=== PATIENT | male | born 1935 | race Caucasian/White ===

== ENCOUNTER 2016-09-18 17:18 | Inpatient (IN) | payer MEDICARE, BC ==
[~2016-09-18] VITALS: Ht 177.8 cm; Wt 98.0 kg
[~2016-09-18 17:18] MED LIST: ASPIRIN 81M81 MG/TA2 PO; BYSTOLIC2.5 MG PO; CEPHALEXIN500 M1 PO; CLOBETASOL0.05% TP; COUMADIN 5MG5 MG/TAB PO; DIOVAN320 MG PO; FISH OIL 1000MG1 CAP PO; HCTZ PO; IMDUR 30MG30 MG/TAB PO; LEVAQUIN 750MG750 M1; LOVENOX120 MG/0.8 SC; LUTEIN PO; LUTEIN6 MG PO; NORCO 325 MG-51 TAB PO; PRAVACHOL10 MG PO; PRINZIDE 25 MG-1 TAB PO; TEMOVATE0.05% TP; TEMOVATE45OI TOP; TIMOLOL OPHTHALMIC OU; TIMOPTIC 0.25%-10 OU; TRAVATAN 2.5 M2.5 M1 OU; XALATAN EYE DROPS OU; [UNRECOGNIZED DRUG - OTHER] TP
[2016-10-08 08:00] VITALS: BP 145/85; PULSE 75; TEMP 98.7
[2016-10-08 08:04] VITALS: BP 145/85; PULSE 74; TEMP 98.7
[2016-10-08] MEDS ORDERED: ZIAC 5/6.25MG T1 TAB PO (08:22)
[2016-10-08] MEDS ORDERED: DIOVAN 160MG160 MG PO (08:23)
[2016-10-08 09:14] LABS: HEMATOCRIT 40.8 % (42.0-52.0); HEMOGLOBIN 14.5 g/dl (13.5-18.0); MEAN CELL VOLUME 88 fl (80.0-100.0); MEAN CORPUSCULAR HEMOGLOBIN 31 pg (27.0-31.0); MEAN CORPUSCULAR HGB CONC 36 g/dl (33.0-37.0); MEAN PLATELET VOLUME 10.6 fl (7.4-10.4); PLATELET COUNT 145 K/mm3 (130-400); RED BLOOD COUNT 4.63 M/mm3 (4.20-5.60); REDCELL DISTRIBUTION WIDTH-CV 13.2 % (11.5-14.5); WHITE BLOOD COUNT 4.8 K/mm3 (4.8-10.8)
[2016-10-08 09:16] LABS: INR 1.1 (0.8-3.0); PROTHROMBIN TIME 12.1 SECONDS (9.7-12.8)
[2016-10-08 09:28] LABS: ADJUSTED CALCIUM 9.2 mg/dL (8.4-10.2); ALBUMIN 3.4 gm/dL (3.5-5.0); BILIRUBIN,TOTAL 0.8 mg/dL (0.0-1.0); CALCIUM 8.7 mg/dL (8.4-10.2); CREATININE, serum 0.74 mg/dL (0.66-1.25); MAGNESIUM 1.9 mg/dL (1.6-2.3); TOTAL PROTEIN 6.1 gm/dL (6.4-8.2)
[2016-10-08 11:04] VITALS: BP 139/79; PULSE 110; TEMP 97.7
[2016-10-08 16:30] VITALS: BP 160/95; PULSE 65; TEMP 98.5
[2016-10-08 19:28] VITALS: BP 120/69; PULSE 54; PULSE 76; TEMP 98.8
[2016-10-08 22:47] VITALS: BP 151/93; PULSE 67; TEMP 98.5
[2016-10-09 03:22] VITALS: BP 135/78; PULSE 65; TEMP 97.8
[2016-10-09 06:54] LABS: CALCIUM 8.7 mg/dL (8.4-10.2); CREATININE, serum 0.7 mg/dL (0.66-1.25); POTASSIUM 4.2 mmol/L (3.4-5.0)
[2016-10-09 08:13] VITALS: BP 113/63; PULSE 119; TEMP 97.4
[2016-10-09 12:42] VITALS: BP 126/77; PULSE 119; TEMP 97.4
[2016-10-09 16:56] VITALS: BP 110/56; PULSE 60; TEMP 97.4
[2016-10-09 20:51] VITALS: BP 141/75; PULSE 60; TEMP 97.8
[2016-10-10 00:17] VITALS: BP 133/69; PULSE 65; TEMP 98.2
[2016-10-10 04:10] VITALS: BP 127/77; PULSE 65; TEMP 97.8
[2016-10-10 07:20] LABS: CALCIUM 8.5 mg/dL (8.4-10.2); CREATININE, serum 0.7 mg/dL (0.66-1.25); POTASSIUM 4.2 mmol/L (3.4-5.0)
[2016-10-10 08:02] VITALS: BP 110/53; PULSE 59; TEMP 97.5
[2016-10-10 11:47] VITALS: BP 93/61; PULSE 62; TEMP 98
[2016-10-10] MEDS ORDERED: BETAPACE 80MG80 MG PO (13:43)
[2016-10-10] MEDS ORDERED: DIOVAN 80MG80 MG PO (13:43)
== END 2016-10-10 14:20 | disposition home or self-care (01) | DRG 309 ==
LOC: MEDICAL 10-08 07:45
PROVIDERS: Internal Medicine Cardiovascular Disease
DX: I47.1 Supraventricular tachycardia (principal); I42.9 Cardiomyopathy, unspecified; I10 Essential (primary) hypertension; E78.5 Hyperlipidemia, unspecified; Z95.810 Presence of automatic (implantable) cardiac defibrillator
CPT/HCPCS: J1650

== ENCOUNTER 2019-01-19 01:44 | Inpatient (IN) | payer MEDICARE, BC ==
[2019-01-19] VITALS (423 sets, daily range): BP systolic 103–172; BP diastolic 59–99; PULSE 57–70; TEMP 97.5–98; O2SAT 75–100
[~2019-01-19] VITALS: Ht 177.8 cm; Wt 86.2 kg
[~2019-01-19 01:44] MED LIST changes: +BETAPACE 80MG80 MG PO; +DIOVAN 160MG160 MG PO; +DIOVAN 80MG80 MG PO; +ZIAC 5/6.25MG T1 TAB PO
--- NOTE | 2019-01-19 01:53 | NUR ---
Received report from [place] nurseKim.
[2019-01-19 03:45] LABS: COLLECTION METHOD CLEAN CATCH
[2019-01-19 04:18] LABS: MUCOUS Present /lpf; PH 6 (5-8); SQUAMOUS EPITHELIAL None Seen /hpf; URINE APPEARANCE Clear; URINE BACTERIA None Seen /hpf; URINE BILIRUBIN Negative (NEGATIVE); URINE BLOOD 3+ (NEGATIVE); URINE COLOR Yellow; URINE GLUCOSE 3+ (NEGATIVE); URINE KETONE Negative (NEGATIVE); URINE LEUKOCYTE ESTERASE Negative (NEGATIVE); URINE NITRATE Negative (NEGATIVE); URINE PROTEIN(semi-quant) Negative (NEGATIVE); URINE UROBILINOGEN Negative (NEGATIVE); URINE WBC 0-2 /hpf
[2019-01-19] MEDS ORDERED: PLAVIX 75MG TAB75 MG PO (05:19)
[2019-01-19] MEDS ORDERED: COZAAR 25MG25 MG/TAB PO (05:20)
--- NOTE | 2019-01-19 05:37 | NUR ---
Patient arrived to ICU room 4 via EMS stretcher at 0230. Patient ambulated with stand-by assist to ICU bed. Patient's street clothes were removed and replaced with a gown. Skin was assessed; patient is admitted with 20 guage IV in right wrist that is saline locked. Feet are cold to palpation; pedal and post tibial pulses are 1+. No other skin issues noted. Patient is alert and oriented x 4 and denies any present pain or discomfort. Patient's initial blood pressure is 172/99, all other vitals are within normal limits. Patient's personal belongings include a watch with a black leather bad, a gold wedding band, a pair of jeans, a white shirt, a blue plaid shirt, white socks, underpants, and black shoes. Dr. Limon was notified of patient's arrival. No orders have been recieved at this time; instructed to notify Ashly if patient reverts to afib RVR. Will continue to monitor.
[2019-01-19 06:05] LABS: BASO # 0.1 (0.0-0.2); EOS # 0.1 (0.0-0.7); EOS % 1.2 % (0-4.0); GRAN # 2.9 (1.4-6.5); GRAN % 57.3 % (42.2-75.2); HEMOGLOBIN 15.4 g/dl (13.5-18.0); LYMPH # 1.2 (1.2-3.4); LYMPH % 23.2 % (20.0-51.0); MEAN CELL VOLUME 90 fl (80.0-100.0); MEAN CORPUSCULAR HEMOGLOBIN 31 pg (27.0-31.0); MEAN CORPUSCULAR HGB CONC 35 g/dl (33.0-37.0); MONO # 0.9 (0.1-0.6); MONO % 16.9 % (1.7-9.3); PLATELET COUNT 139 K/mm3 (130-400); REDCELL DISTRIBUTION WIDTH-CV 13.2 % (11.5-14.5)
[2019-01-19 06:25] LABS: CALCIUM 8.7 mg/dL (8.4-10.2); CREATININE, serum 0.62 (0.66-1.25); POTASSIUM 3.8 mmol/L (3.4-5.0)
--- NOTE | 2019-01-19 07:24 | NUR ---
Report given to JACQUES Ibrahim.
--- NOTE | 2019-01-19 09:30 | NUR ---
at bedside rounding with pt.
--- NOTE | 2019-01-19 10:02 | NUR ---
Initial visit; Patient thanked Library Science Instructor for looking in on him and offering God's blessings.
--- NOTE | 2019-01-19 11:11 | NUR ---
TOOL HARDENER student met with the patient to discuss a discharge plan. The patient lives in [place] with his , Maggie. The patient has a CPAP. The patient received the machine from [facility] but receives supplies from [facility]. The patient reports independence with ADLs. The patient's PCP is Dr. Rodriguez in [place] and patient receives medications from [facility] with no difficulties. The patient does not have advanced directives in the EMR but reports they are completed and designate his son Amee from [place], [place]. The patient plans to return home upon discharge with Maggie providing transportation. There are no additional needs at this time.
--- NOTE | 2019-01-19 14:00 | NUR ---
Dr. Hough at bedside rounding with team.
--- NOTE | 2019-01-19 15:35 | NUR ---
pt transferred to medical floor via wheelchair. all belongings brought with pt. pt stable upon arrival. report and pt chart given to JACQUES Fortune.
--- NOTE | 2019-01-19 19:28 | NUR ---
PATIENT ARRIVED TO FLOOR FROM ICU. DENIES PAIN. LUNGS ARE CLEAR, HEART IS AV PACED. DENIES CHEST PAIN. ABDOMEN IS SOFT AND NONTENDER, BOWEL SOUNDS ACTIVE X4. NO EDEMA PRESENT. PULSES ARE PRESENT AND PALPABLE PEDAL AND RADIAL. AMBULATES INDEPENDENTLY IN ROOM, GAIT IS STEADY. IS AT BEDSIDE. PATIENT IS UNREMARKABLE. CALL LIGHT AND PERSONAL ITEMS ARE WITHIN REACH.
--- NOTE | 2019-01-19 20:00 | NUR ---
Report received. 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 A&Ox3. Assessment complete. VS stable. Denies N/V/chest pain/shortness of breath. Sitting up in bed reading. LCTA. Voiding without difficulty. Tolerating PO. States she is ready to go home tomorrow. Denies needs. Encouraged to call for questions/concerns. Verbalizes understanding. Call light in reach/bed in low/wheels locked. WIll monitor.
[2019-01-20] VITALS (9 sets, daily range): BP systolic 100–129; BP diastolic 53–61; PULSE 59–91; TEMP 97.1–98.9
[2019-01-20 07:23] LABS: BASO # 0.1 (0.0-0.2); EOS # 0.1 (0.0-0.7); EOS % 2.2 % (0-4.0); GRAN # 2.9 (1.4-6.5); GRAN % 58.3 % (42.2-75.2); HEMATOCRIT 43.2 % (42.0-52.0); HEMOGLOBIN 14.9 g/dl (13.5-18.0); LYMPH # 1.1 (1.2-3.4); LYMPH % 21.4 % (20.0-51.0); MEAN CELL VOLUME 91 fl (80.0-100.0); MEAN CORPUSCULAR HEMOGLOBIN 31 pg (27.0-31.0); MEAN CORPUSCULAR HGB CONC 35 g/dl (33.0-37.0); MEAN PLATELET VOLUME 10.4 fl (7.4-10.4); MONO # 0.8 (0.1-0.6); MONO % 16.3 % (1.7-9.3); PLATELET COUNT 137 K/mm3 (130-400); RED BLOOD COUNT 4.75 M/mm3 (4.20-5.60); REDCELL DISTRIBUTION WIDTH-CV 13.4 % (11.5-14.5)
[2019-01-20 07:35] LABS: CALCIUM 8.4 mg/dL (8.4-10.2); CREATININE, serum 0.73 (0.66-1.25); POTASSIUM 4.2 mmol/L (3.4-5.0)
--- NOTE | 2019-01-20 09:00 | NUR ---
Assessment completed, alert/oriented, vital signs stable, denies any chest pain/ discomfort/ palpitations, V paced on tele, denies any SOA or lightheadedness/ lungs CTA, patient is going down for a Lexiscan stress test at this time, he has been NPO, will give morning meds when he returns
--- NOTE | 2019-01-20 10:09 | NUR ---
patient is back from his stress test, denies needs
--- NOTE | 2019-01-20 13:41 | NUR ---
Imitial visit; Patient and his thanked [employer] for looking in on him, offering God's blessings and keeping him in [employer]'s prayers.
[2019-01-20] MEDS ORDERED: BETAPACE 120MG120 MG PO (15:25)
--- NOTE | 2019-01-20 17:28 | NUR ---
Discharge instructions reviewed with the patient, insturcted to follow up with cardiology and PCP as we have scheduled, discussed medicaiton changed to Sotalol dosing and to stop losartan, insstructed on chaning positiong slowy to avoid feeling dizzy/ lightheaded, IV and tele removed, he is waitng for his to arrive , I will escort him out the door when she is here to pick him up
== END 2019-01-20 17:30 | disposition home or self-care (01) | DRG 309 ==
LOC: IMCU 01:44 → MEDICAL 02:30 → ICU 02:30 → MEDICAL 15:28
PROVIDERS: Internal Medicine; Physician Assistant; ADMIT Student in an Organized Health Care Education/Training Program
DX: I47.2 Ventricular tachycardia (principal); I42.9 Cardiomyopathy, unspecified; I47.1 Supraventricular tachycardia; I10 Essential (primary) hypertension; I72.4 Aneurysm of artery of lower extremity; E78.5 Hyperlipidemia, unspecified; E11.51 Type 2 diabetes mellitus with diabetic peripheral angiopathy without gangrene; I08.0 Rheumatic disorders of both mitral and aortic valves; G47.33 Obstructive sleep apnea (adult) (pediatric); Z79.82 Long term (current) use of aspirin; Z79.02 Long term (current) use of antithrombotics/antiplatelets; Z99.81 Dependence on supplemental oxygen; Z95.810 Presence of automatic (implantable) cardiac defibrillator; Z86.718 Personal history of other venous thrombosis and embolism
CPT/HCPCS: 99222-AI; 99239; A9500; J1650

== ENCOUNTER 2021-03-22 10:40 | Day surgery (SDC) | payer BC, MEDICARE ==
[2021-03-22] VITALS (7 sets, daily range): BP systolic 97–166; BP diastolic 39–84; PULSE 51–73; TEMP 97.9–100.5
[~2021-03-22] VITALS: Ht 177.8 cm; Wt 89.7 kg
[~2021-03-22 10:40] MED LIST changes: +BETAPACE 120MG120 MG PO; +COZAAR 25MG25 MG/TAB PO; +PLAVIX 75MG TAB75 MG PO
--- NOTE | 2021-03-22 11:50 | NUR ---
Notified RAMON Isabel, of blood pressure and irregular heart tones. MILLWRIGHT HELPER here to see patient.
[2021-03-22] MEDS ORDERED: ZEBETA 5MG5 MG PO (12:52)
[2021-03-22] MEDS ORDERED: COZAAR100 MG PO (12:53)
[2021-03-22] MEDS ORDERED: VITAMIN D31000 IU PO (12:54)
--- NOTE | 2021-03-22 17:20 | NUR ---
1555 - Pt returned to [place] 3 via cart. Alert and orient. Post op vital started. Pt up to bathroom, unable to void. Pt back to room. Coffee, water and pudding provided. 1610 - Bladder scan pt, 185 ml. Tolerating food and drink well. 1625 - Pt up for walk in tang. Pt to bathroom, unable to void. Blood cleaned from around penis, no more active bleed. Dr. Hyatt called, wants to give pt more time. 1715- Pt up to walk in tang. Pt to bathroom, unable to void. 1730- Report given to JACQUES Shin.
--- NOTE | 2021-03-22 17:30 | NUR ---
Care resumed at this time, pt awake and alert, VSS, more water provided. Call light in reach. Pt denies pain or nausea.
--- NOTE | 2021-03-22 18:00 | NUR ---
Pt up to the bathroom and unable to void, small clot noted in toilet. VSS. Denies pain. Dr. Hyatt notified at 181 and orders for 18 fr lazo catheter to be placed and pt may be discharged and his office will call early next week for follow up.
--- NOTE | 2021-03-22 18:05 | NUR ---
Bladder scan results 350 mls.
--- NOTE | 2021-03-22 18:45 | NUR ---
18 fr lazo catheter 10 cc balloon placed under sterile technique by JACQUES Moncada. Small clots and pink to dark red urine drains easily. Urine begins to improve in color as it drains. 450 mls of urine out. Discharge instructions provided to pt and his by this RN and JACQUES Moncada. Pt assisted with getting dressed. IV discontinued.
--- NOTE | 2021-03-22 19:10 | NUR ---
Pt taken out via wheelchair by JACQUES Moncada with and left in her care in private vehicle.
== END 2021-03-22 19:10 | disposition home or self-care (01) ==
LOC: SDCO 10:40
DX: I10 Essential (primary) hypertension (principal); R31.0 Gross hematuria; I25.2 Old myocardial infarction; I25.10 Atherosclerotic heart disease of native coronary artery without angina pectoris; I42.9 Cardiomyopathy, unspecified; I47.2 Ventricular tachycardia; M19.90 Unspecified osteoarthritis, unspecified site; E78.5 Hyperlipidemia, unspecified; C67.2 Malignant neoplasm of lateral wall of bladder; G62.9 Polyneuropathy, unspecified; E11.42 Type 2 diabetes mellitus with diabetic polyneuropathy; G47.33 Obstructive sleep apnea (adult) (pediatric); Z99.89 Dependence on other enabling machines and devices; Z79.82 Long term (current) use of aspirin; Z79.899 Other long term (current) drug therapy; Z79.02 Long term (current) use of antithrombotics/antiplatelets
CPT/HCPCS: A4314; J0690; J1100; J2405; J2704; J3010; J7120